=== PATIENT | female | born 1990 | race Caucasian/White ===

== ENCOUNTER 2018-05-18 00:17 | Emergency (ER) | payer OTHER ==
[2018-05-18 00:21] VITALS: BP 147/86; PULSE 84; RESP 18; TEMP 98.2
--- NOTE | 2018-05-18 02:20 | ED ---
ENT HPI - General Chief complaint: ENT Stated complaint: Sore Throat Time Seen by Provider: 05/18/18 01:47 Source: patient, RN notes reviewed, old records reviewed Mode of arrival: ambulatory Limitations: no limitations - History of Present Illness Initial comments: Patient is a 28-year-old female who presents today with chief complaint sore throat. Patient states that she's had a sore throat for the past 2 days. She states that she is concerned that he could be strep throat and did not want be contagious for work. Patient denies any fevers or chills. She does report some sinus congestion and nasal drainage as well. Patient denies any other symptoms. - Related Data Allergies Allergy/AdvReac Type Severity Reaction Status Date / Time No Known Allergies Allergy Verified 05/18/18 00:21 Review of Systems ROS Statement: Those systems with pertinent positive or pertinent negative responses have been documented in the HPI. ROS Other: All systems not noted in ROS Statement are negative. Past Medical History Additional Past Medical History / Comment(s): hx strep throat History of Any Multi-Drug Resistant Organisms: None Reported Past Surgical History: Adenoidectomy, Tonsillectomy Past Psychological History: No Psychological Hx Reported Smoking Status: Never smoker Past Alcohol Use History: None Reported Past Drug Use History: Marijuana General Exam - General Exam Comments Initial Comments: Well-appearing 28-year-old female. No acute distress. Limitations: no limitations General appearance: alert, in no apparent distress Head exam: Present: atraumatic, normocephalic, normal inspection Eye exam: Present: normal appearance, PERRL, EOMI. Absent: scleral icterus, conjunctival injection, periorbital swelling ENT exam: Present: normal exam, mucous membranes moist. Absent: normal oropharynx ( erythematous oropharynx. No exudate noted) Neck exam: Present: normal inspection. Absent: tenderness, meningismus, lymphadenopathy Respiratory exam: Present: normal lung sounds bilaterally. Absent: respiratory distress, wheezes, rales, rhonchi, stridor Cardiovascular Exam: Present: regular rate, normal rhythm, normal heart sounds. Absent: systolic murmur, diastolic murmur, rubs, gallop, clicks GI/Abdominal exam: Present: soft, normal bowel sounds. Absent: distended, tenderness, guarding, rebound, rigid Extremities exam: Present: normal inspection, full ROM, normal capillary refill. Absent: tenderness, pedal edema, joint swelling, calf tenderness Back exam: Present: normal inspection Neurological exam: Present: alert, oriented X3, CN II-XII intact Course Vital Signs 05/18/18 00:17 Temperature 98.2 F Pulse Rate 84 Respiratory 18 Rate Blood Pressure 147/86 O2 Sat by Pulse 99 Oximetry Medical Decision Making - Medical Decision Making 28-year-old female. Presents respiratory with sore throat 2 days. Patient has no fever. Vital signs stable. Rapid strep at this time is negative. Discussed this and likely viral pharyngitis. Motrin Tylenol and over-the- counter treatment for pain. Patient agrees treatment plan will comply. Given a note for work. - Lab Data Lab Results 05/18/18 Range/Units 00:26 Group A Strep Rapid Negative (Negative) Disposition Clinical Impression: Pharyngitis Disposition: HOME SELF-CARE Condition: Good Instructions: Pharyngitis (ED) Additional Instructions: Rest, Motrin Tylenol for pain. Drink lots of liquids. Take [id number] decongestant medication. Return to emergency department if any alarming signs or symptoms occur. Is patient prescribed a controlled substance at d/c from ED?: No Referrals: None,Stated [Primary Care Provider] - 1-2 days Time of Disposition: 02:20
== END 2018-05-18 02:42 | disposition home or self-care (01) ==
LOC: EC 00:17
DX: J02.9 Acute pharyngitis, unspecified (principal); Z90.89 Acquired absence of other organs
CPT/HCPCS: 87081; 87430; 99283